=== PATIENT | female | born 1980 | race Two or more races ===

== ENCOUNTER 2019-10-30 19:14 | Inpatient (IN) | payer MEDICAID ==
[~2019-10-30] VITALS: Ht 177.8 cm; Wt 62.8 kg
--- NOTE | 2019-10-30 19:35 | NUR ---
patient reports that her swelling on her feet extends up to her stomach, she does hae 3+ pitting edema in the feet.
[2019-10-30] MEDS ORDERED: MORPHINE SULFATE 4 MG/ML, 1ML ONE (19:52)
[2019-10-30] MEDS ORDERED: SODIUM CHLORIDE FLUSH 10ML SYR IVF ONE (20:00)
[2019-10-30] MEDS ORDERED: MORPHINE SULFATE 4 MG/ML, 1ML IVPush PRN (20:00)
[2019-10-30 20:10] LABS: BASOPHILS # (AUTO) 0.01 x10^3/uL (0-0.1); BASOPHILS % (AUTO) 0 % (0-1); EOSINOPHILS % (AUTO) 1 % (1-7); INTERNATIONAL NORMALIZED RATIO 0.94 (0.93-1.1); LYMPHOCYTES # (AUTO) 0.57 x10^3/uL (1-3.4); LYMPHOCYTES % (AUTO) 6 % (22-44); MD MORPH REVIEW ONLY; MEAN CORPUSCULAR HEMOGLOBIN 26.2 pg (27.0-34.8); MEAN CORPUSCULAR HGB CONC 32.3 g/dL (32.4-35.8); MEAN CORPUSCULAR VOLUME 81.2 fL (80-100); MEAN PLATELET VOLUME 6.8 fL (7.4-10.4); MONOCYTES # (AUTO) 0.54 x10^3/uL (0.2-0.8); MONOCYTES % (AUTO) 5 % (2-9); NEUTROPHILS % (AUTO) 88 % (42-75); PLATELET COUNT 536 x10^3/uL (130-400); RED BLOOD COUNT 3.53 x10^6/uL (3.82-5.3); RED CELL DISTRIBUTION WIDTH 22.6 % (9.6-15.2)
[2019-10-30 20:12] LABS: ALBUMIN 1.6 g/dL (3.4-5.0); ANION GAP 9 mmol/L (5-15); CALCIUM 7.7 mg/dL (8.5-10.1); CHLORIDE 100 mmol/L (98-107)
[2019-10-30 20:16] LABS: ANISOCYTOSIS 1+; MICROCYTOSIS 1+
[2019-10-30 20:17] LABS: <PLATELET ESTIMATE> INCREASED; HYPOCHROMIA 1+; OVALOCYTES 1+
[2019-10-30 20:18] LABS: SMALL PLATELETS 1+
[2019-10-30 20:19] LABS: ALANINE AMINOTRANSFERASE 16 U/L (12-78); ALKALINE PHOSPHATASE 226 U/L (45-117); BILIRUBIN,TOTAL 0.6 mg/dL (0.2-1.0); CREATININE 4.76 mg/dL (0.55-1.02); TOTAL PROTEIN 5.9 g/dL (6.4-8.2)
[2019-10-30] MEDS ORDERED: PROMETHAZINE 25 MG/ML, 1ML IM PRN (20:30)
[2019-10-30] MEDS ORDERED: DOCUSATE 100 MG CAPSULE PO PRN (20:30)
[2019-10-30] MEDS ORDERED: ONDANSETRON ODT 4 MG PO PRN (20:30)
[2019-10-30] MEDS ORDERED: ACETAMINOPHEN 325 MG TABLET PO PRN (20:30)
[2019-10-30] MEDS ORDERED: hydrALAzine 20 MG/ML, 1ML IVPush PRN (20:30)
[2019-10-30] MEDS ORDERED: ONDANSETRON 2MG/ML, 2ML IVPush PRN (20:30)
[2019-10-30 20:46] LABS: FREE T4 (FREE THYROXINE) 1.07 ng/dL (0.76-1.46)
[2019-10-30 20:57] LABS: MICROSCOPIC INDICATED
[2019-10-30] MEDS ORDERED: GOLD325C2 PO (21:41)
[2019-10-30] MEDS ORDERED: MAGN400T9 PO (21:41)
[2019-10-30] MEDS ORDERED: ACTI260C PO (21:41)
[2019-10-30] MEDS ORDERED: NIFE5POW TP (21:41)
[2019-10-30] MEDS ORDERED: ECHI125T PO (21:41)
[2019-10-30] MEDS ORDERED: METO5TAB2 PO (21:41)
[2019-10-30] MEDS ORDERED: MORP30TA81 PO (21:44)
[2019-10-30] MEDS ORDERED: morphine PO (21:44)
[2019-10-30] MEDS ORDERED: CALCIUM GLUCONATE 4.6 MEQ/10 ML IVPush ONE (23:00)
[2019-10-30] MEDS ORDERED: INSULIN REGULAR 100 UNITS/ML, 3ML VIAL SQ-INSULIN ONE (23:00)
[2019-10-30] MEDS ORDERED: DEXTROSE 50%, 50ML SYRINGE IVPush ONE (23:00)
[2019-10-30 23:23] VITALS: BP 107/66
[2019-10-31 02:10] VITALS: BP 108/67
[2019-10-31] MEDS: morphine SULFATE 10 MG/ML, 1ML IVPush PRN ×2 (03:49→20:17)
[2019-10-31] MEDS: METOCLOPRAMIDE 10MG TABLET PO SCH ×3 (06:05→17:02)
[2019-10-31] MEDS ORDERED: INSULIN REGULAR 100 UNITS/ML, 3ML VIAL SQ-INSULIN SCH (07:00)
[2019-10-31 07:46] LABS: CHLORIDE 101 mmol/L (98-107)
[2019-10-31 07:52] LABS: ALANINE AMINOTRANSFERASE 14 U/L (12-78); ALBUMIN 1.6 g/dL (3.4-5.0); ALKALINE PHOSPHATASE 231 U/L (45-117); ANION GAP 8 mmol/L (5-15); BILIRUBIN,TOTAL 0.4 mg/dL (0.2-1.0); CALCIUM 7.6 mg/dL (8.5-10.1); CHOL/HDL RATIO 2.9; CHOLESTEROL, TOTAL 124 mg/dL (140-239); CREATININE 5.05 mg/dL (0.55-1.02); HDL CHOL % 35 % (28-40); HDL CHOLESTEROL (DIRECT) 43 mg/dL (40-60); LDL CHOLESTEROL,CALCULATED 64 mg/dL (54-169); LDL/HDL RATIO 1.5 (0.5-3.0); TOTAL PROTEIN 5.5 g/dL (6.4-8.2); TRIGLYCERIDES 83 mg/dL (50-200); VLDL CHOLESTEROL 17 mg/dL (0-25)
[2019-10-31 08:27] VITALS: BP 113/75
[2019-10-31] MEDS ORDERED: DEXTROSE 50%, 50ML SYRINGE IVPush PRN (09:00)
[2019-10-31] MEDS ORDERED: DEXTROSE 4 GM TAB.CHEW PO PRN (09:00)
[2019-10-31] MEDS ORDERED: GLUCAGON 1 MG IM PRN (09:00)
[2019-10-31] MEDS ORDERED: SODIUM POLYSTYRENE SULFONATE ORAL SUSP PO ONE (09:30)
[2019-10-31] MEDS: TAMSULOSIN 0.4 MG CAP.ER.24H PO SCH (11:48)
[2019-10-31] MEDS: SODIUM CHLORIDE 0.9% 1,000 ML IV SCH (11:59)
[2019-10-31] MEDS: SODIUM CHLORIDE FLUSH 10ML SYR IVF SCH ×2 (11:59→21:00)
[2019-10-31 12:26] LABS: ANION GAP 6 mmol/L (5-15); CALCIUM 7.8 mg/dL (8.5-10.1); CHLORIDE 102 mmol/L (98-107); CREATININE 4.77 mg/dL (0.55-1.02)
[2019-10-31 14:20] VITALS: BP 115/71
[2019-10-31] MEDS ORDERED: SODIUM ZIRCONIUM CYCLOSILICATE 5 GM PO ONE (14:30)
[2019-10-31 14:57] LABS: CHLORIDE,URINE RANDOM 26 mmol/L; POTASSIUM,URINE RANDOM 31 mmol/L; SODIUM,URINE RANDOM 23 mmol/L
[2019-10-31] MEDS: morphine SULFATE ORAL.CONC 20 MG/ML PO PRN (15:45)
[2019-10-31 16:10] LABS: ANION GAP 6 mmol/L (5-15); CALCIUM 8.1 mg/dL (8.5-10.1); CHLORIDE 103 mmol/L (98-107)
[2019-10-31 16:12] LABS: CREATININE 4.53 mg/dL (0.55-1.02)
[2019-10-31 21:09] VITALS: BP 138/84
[2019-10-31] MEDS ORDERED: METOCLOPRAMIDE 10MG TABLET ONE (21:41)
[2019-10-31 23:14] LABS: ANION GAP 7 mmol/L (5-15); CHLORIDE 103 mmol/L (98-107); CREATININE 4.07 mg/dL (0.55-1.02)
[2019-11-01 00:32] VITALS: BP 106/66
[2019-11-01] MEDS: morphine SULFATE ORAL.CONC 20 MG/ML PO PRN ×5 (03:19→21:55)
[2019-11-01] MEDS: SODIUM CHLORIDE 0.9% 1,000 ML IV SCH (05:31)
[2019-11-01] MEDS ORDERED: METOCLOPRAMIDE 10MG TABLET PO SCH ×3 (06:00→09:00)
[2019-11-01 07:22] LABS: MEAN CORPUSCULAR HGB CONC 32.1 g/dL (32.4-35.8); PLATELET COUNT 502 x10^3/uL (130-400); RED CELL DISTRIBUTION WIDTH 23.1 % (9.6-15.2)
[2019-11-01 07:27] VITALS: BP 113/73
[2019-11-01 07:27] LABS: ALBUMIN 1.6 g/dL (3.4-5.0); ANION GAP 7 mmol/L (5-15); CHLORIDE 106 mmol/L (98-107); CREATININE 3.62 mg/dL (0.55-1.02)
[2019-11-01 07:56] LABS: BASOPHILS # (AUTO) 0.02 x10^3/uL (0-0.1); BASOPHILS % (AUTO) 0 % (0-1); EOSINOPHILS # (AUTO) 0.02 x10^3/uL (0-0.4); EOSINOPHILS % (AUTO) 0 % (1-7); LYMPHOCYTES % (AUTO) 7 % (22-44); MD SCAN; MONOCYTES # (AUTO) 0.42 x10^3/uL (0.2-0.8); MONOCYTES % (AUTO) 5 % (2-9); NEUTROPHILS # (AUTO) 7.73 x10^3/uL (1.8-6.8); NEUTROPHILS % (AUTO) 88 % (42-75)
[2019-11-01] MEDS ORDERED: ERGOCALCIFEROL 50,000 UNIT CAPSULE PO SCH (10:00)
[2019-11-01] MEDS: TAMSULOSIN 0.4 MG CAP.ER.24H PO SCH (10:50)
[2019-11-01] MEDS: METOCLOPRAMIDE 10MG TABLET PO SCH ×3 (10:50→21:12)
[2019-11-01] MEDS: SODIUM CHLORIDE 0.45% 1,000 ML IV SCH (10:53)
[2019-11-01] MEDS: SODIUM CHLORIDE FLUSH 10ML SYR IVF SCH ×2 (10:54→21:12)
[2019-11-01 21:11] VITALS: BP 123/75
[2019-11-02] VITALS (7 sets, daily range): BP systolic 105–124; BP diastolic 68–79
[2019-11-02] MEDS: morphine SULFATE ORAL.CONC 20 MG/ML PO PRN ×7 (02:15→23:40)
[2019-11-02 05:08] LABS: MEAN CORPUSCULAR HEMOGLOBIN 26.4 pg (27.0-34.8); MEAN CORPUSCULAR HGB CONC 32.5 g/dL (32.4-35.8); MEAN CORPUSCULAR VOLUME 81.2 fL (80-100); MEAN PLATELET VOLUME 6.7 fL (7.4-10.4); PLATELET COUNT 551 x10^3/uL (130-400); RED BLOOD COUNT 3.18 x10^6/uL (3.82-5.3); RED CELL DISTRIBUTION WIDTH 23.6 % (9.6-15.2)
[2019-11-02 05:12] LABS: ALBUMIN 1.7 g/dL (3.4-5.0); ANION GAP 6 mmol/L (5-15); CALCIUM 8.3 mg/dL (8.5-10.1); CHLORIDE 105 mmol/L (98-107)
[2019-11-02 05:16] LABS: ALANINE AMINOTRANSFERASE 22 U/L (12-78); ALKALINE PHOSPHATASE 273 U/L (45-117); BILIRUBIN,TOTAL 0.4 mg/dL (0.2-1.0); CREATININE 2.81 mg/dL (0.55-1.02); TOTAL PROTEIN 5.6 g/dL (6.4-8.2)
[2019-11-02 05:47] LABS: BASOPHILS # (AUTO) 0.01 x10^3/uL (0-0.1); BASOPHILS % (AUTO) 0 % (0-1); EOSINOPHILS % (AUTO) 1 % (1-7); LYMPHOCYTES # (AUTO) 0.74 x10^3/uL (1-3.4); LYMPHOCYTES % (AUTO) 7 % (22-44); MD SCAN; MONOCYTES # (AUTO) 0.48 x10^3/uL (0.2-0.8); MONOCYTES % (AUTO) 5 % (2-9); NEUTROPHILS # (AUTO) 9.28 x10^3/uL (1.8-6.8); NEUTROPHILS % (AUTO) 88 % (42-75)
[2019-11-02] MEDS: SODIUM CHLORIDE 0.45% 1,000 ML IV SCH (06:29)
[2019-11-02] MEDS: METOCLOPRAMIDE 10MG TABLET PO SCH ×4 (06:30→22:13)
[2019-11-02] MEDS: SODIUM CHLORIDE FLUSH 10ML SYR IVF SCH ×2 (09:02→21:00)
[2019-11-02] MEDS: TAMSULOSIN 0.4 MG CAP.ER.24H PO SCH (09:02)
[2019-11-03 01:33] VITALS: BP 139/78
[2019-11-03] MEDS: morphine SULFATE ORAL.CONC 20 MG/ML PO PRN ×3 (04:50→15:19)
[2019-11-03] MEDS: METOCLOPRAMIDE 10MG TABLET PO SCH ×4 (05:01→21:17)
[2019-11-03 06:48] LABS: ALBUMIN 1.5 g/dL (3.4-5.0); ANION GAP 6 mmol/L (5-15); CHLORIDE 104 mmol/L (98-107)
[2019-11-03 06:51] LABS: ALANINE AMINOTRANSFERASE 24 U/L (12-78); ALKALINE PHOSPHATASE 249 U/L (45-117); BILIRUBIN,TOTAL 0.5 mg/dL (0.2-1.0); CREATININE 2.31 mg/dL (0.55-1.02); TOTAL PROTEIN 5.2 g/dL (6.4-8.2)
[2019-11-03 07:09] VITALS: BP 123/73
[2019-11-03 07:33] LABS: MEAN CORPUSCULAR HEMOGLOBIN 25.9 pg (27.0-34.8); MEAN CORPUSCULAR HGB CONC 31.7 g/dL (32.4-35.8); MEAN CORPUSCULAR VOLUME 81.7 fL (80-100); MEAN PLATELET VOLUME 6.9 fL (7.4-10.4); PLATELET COUNT 443 x10^3/uL (130-400); RED BLOOD COUNT 3.17 x10^6/uL (3.82-5.3); RED CELL DISTRIBUTION WIDTH 23.1 % (9.6-15.2)
[2019-11-03 07:34] LABS: BASOPHILS % (AUTO) 0 % (0-1); EOSINOPHILS # (AUTO) 0.13 x10^3/uL (0-0.4); EOSINOPHILS % (AUTO) 2 % (1-7); LYMPHOCYTES % (AUTO) 8 % (22-44); MD SCAN; MONOCYTES % (AUTO) 7 % (2-9); NEUTROPHILS # (AUTO) 7.56 x10^3/uL (1.8-6.8); NEUTROPHILS % (AUTO) 84 % (42-75)
[2019-11-03] MEDS: TAMSULOSIN 0.4 MG CAP.ER.24H PO SCH (10:08)
[2019-11-03] MEDS: SODIUM CHLORIDE FLUSH 10ML SYR IVF SCH ×2 (10:08→21:17)
[2019-11-03 14:41] VITALS: BP 114/73
[2019-11-03] MEDS: OXYcodone IR 5MG TABLET PO PRN ×2 (18:07→22:10)
[2019-11-03 19:47] VITALS: BP 119/78
[2019-11-04 01:48] VITALS: BP 155/67
[2019-11-04] MEDS: OXYcodone IR 5MG TABLET PO PRN ×6 (02:10→22:36)
[2019-11-04] MEDS: METOCLOPRAMIDE 10MG TABLET PO SCH ×4 (05:44→21:11)
[2019-11-04 05:48] LABS: MEAN CORPUSCULAR HEMOGLOBIN 26.1 pg (27.0-34.8); MEAN CORPUSCULAR HGB CONC 31.8 g/dL (32.4-35.8); MEAN PLATELET VOLUME 6.5 fL (7.4-10.4); PLATELET COUNT 443 x10^3/uL (130-400); RED CELL DISTRIBUTION WIDTH 23.7 % (9.6-15.2)
[2019-11-04 05:53] LABS: CHLORIDE 106 mmol/L (98-107)
[2019-11-04 06:14] LABS: ALANINE AMINOTRANSFERASE 21 U/L (12-78); ALBUMIN 1.4 g/dL (3.4-5.0); ALKALINE PHOSPHATASE 229 U/L (45-117); ANION GAP 4 mmol/L (5-15); BILIRUBIN,TOTAL 0.4 mg/dL (0.2-1.0); CALCIUM 7.6 mg/dL (8.5-10.1); CREATININE 2.15 mg/dL (0.55-1.02)
[2019-11-04 06:19] LABS: BASOPHILS # (AUTO) 0.03 x10^3/uL (0-0.1); BASOPHILS % (AUTO) 0 % (0-1); EOSINOPHILS # (AUTO) 0.05 x10^3/uL (0-0.4); EOSINOPHILS % (AUTO) 1 % (1-7); LYMPHOCYTES # (AUTO) 0.63 x10^3/uL (1-3.4); LYMPHOCYTES % (AUTO) 7 % (22-44); MD SCAN; MONOCYTES # (AUTO) 0.52 x10^3/uL (0.2-0.8); MONOCYTES % (AUTO) 6 % (2-9); NEUTROPHILS # (AUTO) 7.29 x10^3/uL (1.8-6.8); NEUTROPHILS % (AUTO) 86 % (42-75)
[2019-11-04 06:24] VITALS: BP 127/85
[2019-11-04] MEDS: SODIUM CHLORIDE FLUSH 10ML SYR IVF SCH ×2 (07:32→21:13)
[2019-11-04] MEDS: TAMSULOSIN 0.4 MG CAP.ER.24H PO SCH (07:32)
[2019-11-04] MEDS: AMOXICILLIN/CLAV 875-125MG TABLET PO SCH ×3 (09:00→21:00)
[2019-11-04 14:00] VITALS: BP 110/72
[2019-11-04 18:50] VITALS: BP 128/86
[2019-11-05] VITALS (7 sets, daily range): BP systolic 122–134; BP diastolic 81–93
[2019-11-05] MEDS: OXYcodone IR 5MG TABLET PO PRN ×4 (03:31→18:10)
[2019-11-05] MEDS: METOCLOPRAMIDE 10MG TABLET PO SCH ×3 (06:05→17:01)
[2019-11-05 07:09] LABS: MEAN CORPUSCULAR HEMOGLOBIN 25.9 pg (27.0-34.8); MEAN CORPUSCULAR HGB CONC 31.5 g/dL (32.4-35.8); MEAN CORPUSCULAR VOLUME 82.3 fL (80-100); MEAN PLATELET VOLUME 6.9 fL (7.4-10.4); PLATELET COUNT 446 x10^3/uL (130-400); RED CELL DISTRIBUTION WIDTH 23.4 % (9.6-15.2)
[2019-11-05 07:15] LABS: ALBUMIN 1.5 g/dL (3.4-5.0); ANION GAP 6 mmol/L (5-15); CALCIUM 7.8 mg/dL (8.5-10.1); CHLORIDE 106 mmol/L (98-107)
[2019-11-05 07:19] LABS: ALANINE AMINOTRANSFERASE 23 U/L (12-78); ALKALINE PHOSPHATASE 228 U/L (45-117); BILIRUBIN,TOTAL 0.4 mg/dL (0.2-1.0); CREATININE 2.14 mg/dL (0.55-1.02); TOTAL PROTEIN 5.2 g/dL (6.4-8.2)
[2019-11-05 07:26] LABS: BASOPHILS # (AUTO) 0.04 x10^3/uL (0-0.1); BASOPHILS % (AUTO) 0 % (0-1); EOSINOPHILS # (AUTO) 0.02 x10^3/uL (0-0.4); EOSINOPHILS % (AUTO) 0 % (1-7); LYMPHOCYTES # (AUTO) 0.56 x10^3/uL (1-3.4); LYMPHOCYTES % (AUTO) 6 % (22-44); MD SCAN; MONOCYTES # (AUTO) 0.63 x10^3/uL (0.2-0.8); MONOCYTES % (AUTO) 7 % (2-9); NEUTROPHILS # (AUTO) 8.35 x10^3/uL (1.8-6.8); NEUTROPHILS % (AUTO) 87 % (42-75)
[2019-11-05] MEDS: TAMSULOSIN 0.4 MG CAP.ER.24H PO SCH (07:31)
[2019-11-05] MEDS: SODIUM CHLORIDE FLUSH 10ML SYR IVF SCH (07:31)
[2019-11-05] MEDS: AMOXICILLIN/CLAV 875-125MG TABLET PO SCH (07:31)
[2019-11-05] MEDS: morphine SULFATE ORAL.CONC 20 MG/ML PO PRN (11:05)
[2019-11-05] MEDS ORDERED: TAMS-11 PO (13:37)
[2019-11-05] MEDS ORDERED: ERGO500017 PO (13:37)
[2019-11-05] MEDS ORDERED: AMOX1TAB12 PO (13:37)
== END 2019-11-05 18:30 | disposition home or self-care (01) | DRG 663 ==
LOC: ED 19:48 → EDIP 20:22 → 4EST 21:53 → 3WST 11-04 06:01
PROVIDERS: ADMIT Internal Medicine; ATTEND Internal Medicine
PROC: 30233N1 Transfusion of Nonautologous Red Blood Cells into Peripheral Vein, Percutaneous Approach (ICD-10-PCS; principal; 2019-11-02)
DX: D62 Acute posthemorrhagic anemia (principal); N17.0 Acute kidney failure with tubular necrosis; E43 Unspecified severe protein-calorie malnutrition; C20 Malignant neoplasm of rectum; E87.1 Hypo-osmolality and hyponatremia; K56.600 Partial intestinal obstruction, unspecified as to cause; R18.8 Other ascites; R64 Cachexia; Z68.1 Body mass index [BMI] 19.9 or less, adult; N13.6 Pyonephrosis; K92.1 Melena; B96.20 Unspecified Escherichia coli [E. coli] as the cause of diseases classified elsewhere; R31.0 Gross hematuria; D63.0 Anemia in neoplastic disease; E10.649 Type 1 diabetes mellitus with hypoglycemia without coma; I11.0 Hypertensive heart disease with heart failure; E87.5 Hyperkalemia; Z79.4 Long term (current) use of insulin; Z80.3 Family history of malignant neoplasm of breast; Z85.048 Personal history of other malignant neoplasm of rectum, rectosigmoid junction, and anus
CPT/HCPCS: 36415; 71045; 74176; 76770; 80048; 80053; 80061; 80069; 81001; 82306; 82436; 82570; 82728; 82962; 83036; 83540; 83550; 83605; 83735; 83880; 83970; 84133; 84300; 84439; 84443; 84550; 85014; 85018; 85025; 85610; 85730; 86850; 86900; 86923; 87040; 87077; 87086; 87186; 93005; G0378; J1815; J0610; J2270; J7030; P9040